=== PATIENT | male | born 1955 | race Caucasian/White ===

== ENCOUNTER 2017-01-28 08:00 | Emergency (ER) | payer OTHER ==
[2017-01-28 08:21] VITALS: O2SAT 97
[2017-01-28] MEDS ORDERED: Oxymetazoline 0.05% Nasal Spray (30 ml) NS STA (08:27)
[2017-01-28] MEDS ORDERED: Oxymetazoline 0.05% Nasal Spray (30 ml) NS ONE (08:40)
--- NOTE | 2017-01-28 09:20 | C.PDOC ---
History Of Present Illness 61-year-old male, presents to the emergency department with complaints of bleeding from right nare intermittently for the past three days. Patient does not know what triggers bleed, but states that it resolved spontaneously within a few minutes. Denies blood thinner use, dizziness, nausea/vomiting, fevers, chills, or any other associated symptoms. No other complaints at this time. Time Seen by Provider: 01/28/17 08:14 Chief Complaint (Nursing): ENT Problem History Per: Patient Onset/Duration Of Symptoms: Days Current Symptoms Are (Timing): Still Present Past Medical History Reviewed: Historical Data, Nursing Documentation, Vital Signs Vital Signs: Last Vital Signs Temp 98 F 01/28/17 09:32 Pulse 103 H 01/28/17 09:32 Resp 18 01/28/17 09:32 BP 143/80 01/28/17 09:32 Pulse Ox 97 01/28/17 11:18 - Medical History PMH: Hypercholesterolemia Denies: Chronic Kidney Disease Family History: States: Unknown Family Hx - Social History Hx Alcohol Use: Yes Hx Substance Use: No - Immunization History Hx Tetanus Toxoid Vaccination: No Hx Influenza Vaccination: No Hx Pneumococcal Vaccination: No Review Of Systems Except As Marked, All Systems Reviewed And Found Negative. Constitutional: Negative for: Fever, Chills ENT: Positive for: Other (epistaxis) Cardiovascular: Negative for: Chest Pain Respiratory: Negative for: Shortness of Breath Gastrointestinal: Negative for: Nausea, Vomiting Skin: Negative for: Rash Neurological: Negative for: Weakness, Numbness, Headache, Dizziness Physical Exam - Physical Exam Appears: Non-toxic, No Acute Distress Skin: Warm, Dry, No Rash Head: Atraumatic, Normacephalic Eye(s): bilateral: Normal Inspection, PERRL, EOMI Nose: Epistaxis (right nare, no site identified), No Septal Hematoma Oral Mucosa: Moist Lips: Normal Appearing Throat: Other (no blood visualized in posterior oropharynx.) Neck: Normal ROM Chest: Symmetrical Cardiovascular: Rhythm Regular Respiratory: Normal Breath Sounds, No Accessory Muscle Use Extremity: Normal ROM Neurological/Psych: Oriented x3, Normal Speech ED Course And Treatment O2 Sat by Pulse Oximetry: 97 Progress Note: Plan: Pt given Afrin w/ relief. Epistaxis has resolved. He will be discharged for outpatient f/u with his PMD and ENT. All questions answered and pt is agreeable with plan. Instructed to return to ER if symtpoms return. Disposition - Disposition Referrals: Gautam Conley MD [Staff Provider] - Disposition: HOME/ ROUTINE Disposition Time: 09:17 Condition: STABLE Additional Instructions: Do not blow or pick your nose. If you get a nose bleed, use two fingers and apply pressure on your nose. Keep area moist, use nasal saline. Follow up with the ENT in 1-2 days. Return to ER if symptoms persist or worsen. Return to ER if symptoms persist or worsen. Instructions: Nosebleed (ED) - Clinical Impression Clinical Impression: Epistaxis - Scribe Statement The provider has reviewed the documentation as recorded by the Scriblindsey Barrientos All medical record entries made by the Scribe were at my direction and personally dictated by me. I have reviewed the chart and agree that the record accurately reflects my personal performance of the history, physical exam, medical decision making, and the department course for this patient. I have also personally directed, reviewed, and agree with the discharge instructions and disposition.
[2017-01-28 09:33] VITALS: BP 143/80; PULSE 103; RESP 18; TEMP 98
== END 2017-01-28 09:33 | disposition home or self-care (01) ==
LOC: C.ER 08:00
DX: R04.0 Epistaxis (principal)